=== PATIENT | male | born 1955 | race Caucasian/White ===

== ENCOUNTER 2018-04-27 08:30 | Outpatient (RCR) | payer MEDICARE, MEDICAID, SELFPAY ==
--- NOTE | 2018-01-26 18:51 | HP.SP.ADRE_ITS ---
Previous/Current Goals - Goals 1-5 Previous Goal #1: Jatin will respond negatively regarding his wants and needs by indicating no via augmented sign language during structured therapy activities. Goal 1 Status: Jatin has, very inconsistently, appeared to approximate the augmented no sign at appropriate times during structured therapy. However, he requires direct [id number] the vast majority of the time. He continues to functionally indicate no/dislikes by pushing away non-desired items and producing facial grimaces. Previous Goal #2: Jatin will make functional requests via augnmented sign language during structured therapy activities Goal 2 Status: Jatin continues to use more and yes augmented signs consistently during tx, though he will often use more when he should rather indicate yes. He continues to be consistent indicating that he wants pulled up in his chair by raising his arms, but continues to require direct questioning to initiate. Jatin has not learned any new signs over the last ten sessions, though continued caregiver education has been provided due to frequent staffing changes. We will continue to discuss and implement functional requests over the next sessions. Previous Goal #3: Jatin will categorize objects from significantly different classes from a Fo2 Goal 3 Status: Jatin has demonstrated very little interest/willingness in participating in this goal during structured therapy. It was recommended that this activity be attempted with functional items at Jatin's home, such as silverware or colors of towels, or that functional materials be brought to tx. However, no items have been brought throughout the last ten sessions. We will continue to attempt this goal in the future. History - History Date of Eval: 08/22/16 Medical Diagnosis (from RX): Infantile Cerebral Palsy; Cerebral Palsy Unspecified Previous speech therapy: Yes Results: Jatin has attended speech-langauge therapy at this facility since January of 2015, with brief breaks at the end of the calendar years due to insurance. Previous therapy has attempted low- and high-tech AAC devices with overall very limited success due to significant visual and motoric defecits. - Pain Is pain an issue with your current prescribed condition?: No - Personal Patients Living Arrangements: Institution Subjective AAC - AAC Subjective: Jatin continues to be primarily non-verbal, though he will make vowel-only vocalizations when very happy/excited and groans when upset/in pain. He demonstrates difficulty with fine motor control for pointing and reduced visual acuity. Therefore, augmented sign continues to be the most practical way to attempt increased functional communication. Objective AAC - AAC Objective: Please see obove Goal Status section for objective data regarding use of augmented sign. Jatin does consistently use facial expression/body language to functionally communicate likes and dislikes. He is consistently able to follow simple familiar/routine one-step commands with minimal repetition /prompting, but struggles significantly to follow simple non-routine single- step commands. AAC Re-Eval - Testing Results AAC Test Comparison: Jatin has made very limited improvement across the last ten sessions, though he has, as stated above, appeared to approximate the augmented no sign inconsistently and appropriately several times, which he had not done before. Progress is expected to be slow for the patient's age and diagnosis, with further therapy thereby being warranted at this time to further attempt consistent negation and improved functional communication overall. Plan - Recommendations Treatment Warranted: Yes - Frequency Frequency: 1x/Week Duration: 3 Months - Prognosis Prognosis: Fair - Goals that are Established: Determination:: Goals will be added/modified as deemed necessary and appropriate. Therapy will be discontinued when results of re-evaluation indicate therapy is no longer needed or lack of progress has been documented. - Goal #1-5 Goal #1: Jatin will respond negatively regarding his wants and needs by indicating no via augmented sign language during structured therapy activities. Prompts: Min Accuracy: 60% # Sessions: 3/4 consecutive Goal #2: Jatin will make functional requests via augnmented sign language during structured therapy activities Prompts: Min Accuracy: 75% # Sessions: 3/4 consecutive Goal #3: Jatin will categorize objects from significantly different classes from a Fo2 Prompts: Min Accuracy: 75% # Sessions: 3/4 consecutive
--- NOTE | 2018-04-09 09:37 | HP.PTEVAL ---
Patient's Visit Information JATIN ORTEGA is a 62 year old M referred to Physical Therapy by Wilfredo Marcano with a diagnosis of CP. Date of Evaluation: 04/09/18 Physical Therapist: Marilyn Ramirez - Visit Plan Plan: [facility] for new [facility]. 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 He can understand and knows people its just locked up there and not able to express himself. When he gets upset or excited his body goes into spasm. Has pain with spasms but is unable to let us know and he is just use to his discomfort. Lives in a senior living- with 3 other individuals. Single story home- ramp and fully handicapped accessible- has tracts throughout the ceiling. Any lifting he is in the sling. He likes to be out of his chair as much as possible- very uncomfortable in the current chair. He is either in the chair or in his bed. He eats in the chair and stays 40 min after to make sure digestion is happening. Mother wants him in/out of the chair. His mother is a massage therapist and works on him daily. Is working with circulation through massage. Patellas are moved his LE are contracted. Work: 20 min the AM and 20 min PM on the table- TWI- but he is in the chair from 7 to 3 and only out 2x to change him. 5 days a week- Bathed daily- has a spa tub and a shower- likes to relax in his tub 3 days a week. Dressing is acheived in his bed. He is sliding in the chair and she is always trying to acheive maximum position. Does not change pressure using the tilt in space- they try to get him out of the chair. Always holds his neck forwards. Does not have pressure sores-he is unable to turn on his own. Uses the tray and he is able to feed himself. Transportation is a modified van- has a lift- he does not drive. Patient is a little over 5 foot and weighs approx 107 lbs. Not planning on replacing the whole w/c just the seat. - Objective Jatin is a 62 year male referred to PT by for w/c positioning evaluation. Jatin attends today with 2 caregivers and his mother. Jatin is currently in a tilt in space w/c that is not meeting his current needs. While seated in the sherie Jatin has poor posture- forward head that is in right sidebending. He can move his head through full ROM but prefers this positioning in his current chair. His upper extremities are in a flexed posture- he has decreased range of motion in his shoulders but does have the capability to reach down and access his wheels for simple mobility (approx 15 feet). Elbow contractures- can flex to mouth for feeding but does not obtain full ROM with extension approx 20 degrees from neutral with spasticity and tone. Wrists are in a flexion contracture. Thoracic and Lumbar strength is poor and he is unable to obtain and maintain a sitting position without max A from caregiver/PT. Hips are spaced in chair with adductor padding and legs are secured with LE supports. Jatin is unable to weight shift without max A from caregivers or dependent on lift system. When he slides in the chair caregiver must realign him. Jatin has signficant tone throughout UE and LE leading to contractures and increased pain with stretching. - Goals Goal 1:: Patient will obtain new seating via Malin[employer] for proper positioning. - Rehabilitation Potential Rehabilitation Potential: Good - Anticipated Interventions Thank you for the opportunity to evaluate your patient. For Medicare and Medicare HMO plans, please review the plan of care and approve it. It will need to be FAXED BACK to us at [phone] for Medicare purposes. Please let me know if there are questions or concerns regarding this plan of care. Physician Signature: Date:
--- NOTE | 2018-04-25 13:26 | HP.SP.ADRE ---
Previous/Current Goals - Goals 1-5 Previous Goal #1: Jatin will respond negatively regarding his wants and needs by indicating no via augmented sign language during structured therapy activities. Goal 1 Status: Jatin continues to require direct [id number] for all negation with augmented sign. He is completely functional, however, indicating no/dislikes by pushing away non-desired items and/or producing facial grimaces. Previous Goal #2: Jatin will make functional requests via augnmented sign language during structured therapy activities Goal 2 Status: Jatin continues to use more and yes augmented signs consistently during tx, though he will often use more when he should rather indicate yes. He continues to be consistent indicating that he wants pulled up in his chair by raising his arms, but continues to require direct questioning to initiate. We have introduced the sign for eat, with Jatin requiring 100% [id number] to utilize at this time. Significant caregiver education has been provided regarding importance of consistency with signs at all appropriate times in order for Jatin to become independent. Previous Goal #3: Jatin will categorize objects from significantly different classes from a Fo2 Goal 3 Status: Limited progress has been made with this goal secondary to very little interest/willingness to participate in these types of activities during structured therapy. It continues to be recommended that this activity be attempted with functional items at Jatin's home or that functional materials be brought to therapy to help him feel helpful/purposeful and to encourage prelinguistic skills. However, no items have been brought throughout the last twenty sessions. History - History Date of Eval: 08/22/16 Medical Diagnosis (from RX): Infantile Cerebral Palsy; Cerebral Palsy Unspecified Previous speech therapy: Yes Results: Jatin has attended speech-langauge therapy at this facility since January of 2015, with brief breaks at the end of the calendar years due to insurance. Previous therapy has attempted low- and high-tech AAC devices with overall very limited success due to significant visual and motoric defecits. - Pain Is pain an issue with your current prescribed condition?: No - Personal Patients Living Arrangements: Institution Subjective AAC - AAC Subjective: Jatin continues to be primarily non-verbal, though he will make vowel-only vocalizations when very happy/excited and groans when upset/in pain. He demonstrates difficulty with fine motor control for pointing and reduced visual acuity. Therefore, augmented sign continues to be the most practical way to attempt increased functional communication. Objective AAC - AAC Objective: Please see obove Goal Status section for objective data regarding use of augmented sign. Jatin does consistently use facial expression/body language to functionally communicate likes and dislikes. He is consistently able to follow simple familiar/routine one-step commands with minimal repetition/prompting, but struggles significantly to follow simple non-routine single-step commands. AAC Re-Eval - Testing Results AAC Test Comparison: Jatin has made very limited improvement across the last ten sessions; however, progress is expected to be slow for the patient's age and diagnosis. Further therapy can be warranted at this time, given consistent caregiver support, to further attempt improved functional communication overall. Plan - Recommendations Treatment Warranted: Yes - Frequency Frequency: 1x/Week Duration: 3 Months - Prognosis Prognosis: Poor - Goals that are Established: Determination:: Goals will be added/modified as deemed necessary and appropriate. Therapy will be discontinued when results of re-evaluation indicate therapy is no longer needed or lack of progress has been documented. - Goal #1-5 Goal #1: Jatin will respond negatively regarding his wants and needs by indicating no via augmented sign language during structured therapy activities. Prompts: Min Accuracy: 60% # Sessions: 3/4 consecutive Goal #2: Jatin will make functional requests via augnmented sign language, to include up and eat, during structured therapy activities Prompts: Min Accuracy: 75% # Sessions: 3/4 consecutive Goal #3: Jatin will categorize objects from significantly different classes from a Fo2 Prompts: Min Accuracy: 75% # Sessions: 3/4 consecutive Goal #4: Jatin will follow simple one-step, non-routine commands, including identifying basic nouns Prompts: Mod Accuracy: 60% # Sessions: 3/4 consecutive
--- NOTE | 2018-04-25 13:36 | HP.SP.ADRE_ITS ---
Previous/Current Goals - Goals 1-5 Previous Goal #1: Jatin will respond negatively regarding his wants and needs by indicating no via augmented sign language during structured therapy activities. Goal 1 Status: Jatin continues to require direct [id number] for all negation with augmented sign. He is completely functional, however, indicating no/dislikes by pushing away non-desired items and/or producing facial grimaces. Previous Goal #2: Jatin will make functional requests via augnmented sign language during structured therapy activities Goal 2 Status: Jatin continues to use more and yes augmented signs consistently during tx, though he will often use more when he should rather indicate yes. He continues to be consistent indicating that he wants pulled up in his chair by raising his arms, but continues to require direct questioning to initiate. We have introduced the sign for eat, with Jatin requiring 100% [id number] to utilize at this time. Significant caregiver education has been provided regarding importance of consistency with signs at all appropriate times in order for Jatin to become independent. Previous Goal #3: Jatin will categorize objects from significantly different classes from a Fo2 Goal 3 Status: Limited progress has been made with this goal secondary to very little interest/willingness to participate in these types of activities during structured therapy. It continues to be recommended that this activity be attempted with functional items at Jatin's home or that functional materials be brought to therapy to help him feel helpful/purposeful and to encourage prelinguistic skills. However, no items have been brought throughout the last twenty sessions. History - History Date of Eval: 08/22/16 Medical Diagnosis (from RX): Infantile Cerebral Palsy; Cerebral Palsy Unspecified Previous speech therapy: Yes Results: Jatin has attended speech-langauge therapy at this facility since January of 2015, with brief breaks at the end of the calendar years due to insurance. Previous therapy has attempted low- and high-tech AAC devices with overall very limited success due to significant visual and motoric defecits. - Pain Is pain an issue with your current prescribed condition?: No - Personal Patients Living Arrangements: Institution Subjective AAC - AAC Subjective: Jatin continues to be primarily non-verbal, though he will make vowel-only vocalizations when very happy/excited and groans when upset/in pain. He demonstrates difficulty with fine motor control for pointing and reduced visual acuity. Therefore, augmented sign continues to be the most practical way to attempt increased functional communication. Objective AAC - AAC Objective: Please see obove Goal Status section for objective data regarding use of augmented sign. Jatin does consistently use facial expression/body language to functionally communicate likes and dislikes. He is consistently able to follow simple familiar/routine one-step commands with minimal repetition /prompting, but struggles significantly to follow simple non-routine single- step commands. AAC Re-Eval - Testing Results AAC Test Comparison: Jatin has made very limited improvement across the last ten sessions; however, progress is expected to be slow for the patient's age and diagnosis. Further therapy can be warranted at this time, given consistent caregiver support, to further attempt improved functional communication overall. Plan - Recommendations Treatment Warranted: Yes - Frequency Frequency: 1x/Week Duration: 3 Months - Prognosis Prognosis: Poor - Goals that are Established: Determination:: Goals will be added/modified as deemed necessary and appropriate. Therapy will be discontinued when results of re-evaluation indicate therapy is no longer needed or lack of progress has been documented. - Goal #1-5 Goal #1: Jatin will respond negatively regarding his wants and needs by indicating no via augmented sign language during structured therapy activities. Prompts: Min Accuracy: 60% # Sessions: 3/4 consecutive Goal #2: Jatin will make functional requests via augnmented sign language, to include up and eat, during structured therapy activities Prompts: Min Accuracy: 75% # Sessions: 3/4 consecutive Goal #3: Jatin will categorize objects from significantly different classes from a Fo2 Prompts: Min Accuracy: 75% # Sessions: 3/4 consecutive Goal #4: Jatin will follow simple one-step, non-routine commands, including identifying basic nouns Prompts: Mod Accuracy: 60% # Sessions: 3/4 consecutive
--- NOTE | 2018-04-27 10:23 | HP.PT.NRP ---
HP - Discharge Summary (1) - Patient Information ZAIRA ORTEGA was seen in my office for initial evaluation on 04/09/18. The following Plan of Care was established for this patient: This patient was last seen in our office . Pertinent comments regarding their Physical therapy will appear below: At this point I will be discontinuing this patient from physical therapy. I would be happy to see this patient again in the future if found appropriate by the physician. Thank you! Marilyn Ramirez
== END 2018-04-27 17:00 | disposition home or self-care (01) ==
LOC: SP 08:30
PROVIDERS: Family Provider Family Medicine; PCP Family Medicine; Visit Provider Family Medicine
DX: R49.9 Unspecified voice and resonance disorder (principal); G80.9 Cerebral palsy, unspecified
CPT/HCPCS: 92507; 97162

== ENCOUNTER → 2018-05-18 12:41 | Outpatient (CLI) | payer MEDICARE, MEDICAID, SELFPAY ==
--- NOTE | 2018-05-18 12:44 | RAD_ITS ---
STUDY: SWALLOWING STUDY REASON FOR EXAM: Male, 62 years old. DYSPHAGIA 1,548 FLUORO IMAGES TECHNIQUE: The examination was performed with Speech Pathology in attendance. Under fluoroscopic observation, the patient ingested thin barium, thick barium, barium pudding, and barium coated cracker. FLUOROSCOPY TIME: 1:40 minutes/seconds RADIOLOGIST INVOLVEMENT: Radiologist was present and providing direct supervision. COMPARISON: None. FINDINGS: The following was observed during swallowing of the various mixtures of barium: Thin Barium: There was no evidence of aspiration or laryngeal penetration. Thick Barium: There was no evidence of aspiration or laryngeal penetration. Barium Pudding: There was no evidence of aspiration or laryngeal penetration. RAD/Swallowing Function w/Video IMPRESSION: Normal tailored barium swallow study. No evidence of increased risk for aspiration. The swallow study findings were discussed with the patient by the speech pathologist at the conclusion of the examination. Please see speech pathology report for more information and recommendations. The procedure was performed by speech pathologist under the direct supervision of myself Electronically Signed: Desiree Craig MD at 15:17 EDT Tel , Service support ,
--- NOTE | 2018-05-18 13:00 | SP.MBSS_ITS ---
PRIMARY / SECONDARY DIAGNOSIS: dysphagia (R13.10) REFERRING PHYSICIAN: Dr. Wilfredo Marcano MD CURRENT DIET: regular textures, thin liquids DENTITION: WFL MENTAL STATUS: developmentally delayed RESPIRATORY STATUS: O2 via room air PREVIOUS MODIFIED BARIUM SWALLOW STUDY: none REASON FOR REFERRAL: Patient is a 62 year old male referred for a modified barium swallow (MBS) study to objectively assess the Patients oropharyngeal swallow function under fluoroscopy secondary to the diagnosis of cerebral palsy, with reported recent coughing episodes during PO intake observed by the Patients half-way caregivers. The Patient is well known to this clinician from previous intervention cycles at [facility] / [facility] targeting training and implementation of alternative means of communication (Patient is non-verbal); no intervention targeting dysphagia to date. The Patient was accompanied by his mother and half-way caregiver delivery representative; both deny any recent history of aspiration related pulmonary complications, report intermittent bouts of emesis (Patients mother attributing to excessive mucous buildup secondary to gluten intolerance), reports tachyphagia with bolus ?bolting? (rapid ingestion without sufficient mastication) with staff concerns for asphyxiation. No reported fluctuations or changes in weight or appetite. The Patient is wheelchair bound, completely dependent for all transfers, unable to independently achieve or maintain an upright seated position, is completely dependent for all activities of daily living. MEDICAL HISTORY: Infantile cerebral palsy with severe spasticity and associated developmental disabilities / nonverbal status, gluten intolerance, scoliosis deformity of the spine, bilateral hip displacement. STUDY FINDINGS: Patient participated in a Modified Barium Swallow (MBS) study on 05/18/2018. Dr. Craig was the radiologist present for this evaluation. This study was recorded in the lateral view and images were sent to PACs for storage. The following consistencies were presented to this patient for analysis of oropharyngeal swallow function: thin liquids, pudding, and a regular textured, gluten free cookie. Results of the MBS are as follows: PENETRATION / ASPIRATION SCALE (TIERNEY): 1 = does not enter airway 2 = enters airway/above vocal folds/ejected 3 = enters airway/above vocal folds/not ejected 4 = enters airway/contacts vocal folds/ejected 5 = enters airway/contacts vocal folds/not ejected 6 = enters airway/below vocal folds/ejected 7 = enters airway/below vocal folds/not ejected despite effort 8 = enters airway/below vocal folds/no effort PENETRATION / ASPIRATION SCALE (SCORE): Thin liquids via cup (single sip): refused Thin liquids via straw (sequential swallows): 1 Thin liquids via straw (sequential swallows): 2 Thin liquids via straw (sequential swallows): 1 Thin liquids via straw (sequential swallows): 1 Pudding via spoon: 1 Thin liquids via straw (sequential swallows): 1 Regular textured cookie: 1 Thin liquids via straw (sequential swallows): 1 Thin liquids via straw (sequential swallows): 1 * multiple views complicated by body positioning limitations and occasional movement IMPRESSION: DIAGNOSIS: mild to moderate oropharyngeal dysphagia (R13.12) ORAL PHASE CHARACTERIZED BY: LABIAL SEAL: occasional escape beyond mid chin TONGUE CONTROL DURING BOLUS MANIPULATION: escape to lateral buccal cavity/floor of mouth BOLUS PREPARATION / MASTICATION: slow disorganized chewing/mashing with solid pieces of bolus unchewed BOLUS TRANSPORT / LINGUAL MOTION: slowed tongue motion ORAL RESIDUE: intermittent residue collection on oral structures; majority cleared with self-executed repetitive swallows PHARYNGEAL PHASE CHARACTERIZED BY: INITIATION OF PHARYNGEAL SWALLOW: bolus head in pyriforms at first hyoid excursion SOFT PALATE ELEVATION: no bolus between soft palate and pharyngeal wall LARYNGEAL ELEVATION: complete superior movement of thyroid cartilage with complete approximation of arytenoids cartilage to epiglottic petiole ANTERIOR HYOID EXCURSION: partial anterior movement EPIGLOTTIC MOVEMENT: complete epiglottic inversion LARYNGEAL VESTIBULE CLOSURE AT HEIGHT OF SWALLOW: complete laryngeal vestibule closure with no air/contrast in laryngeal vestibule PHARYNGEAL STRIPPING WAVE: pharyngeal stripping wave present / diminished PHARYNGOESOPHAGEAL SEGMENT OPENING: partial distension and partial duration; partial obstruction of flow TONGUE BASE RETRACTION: narrow column of contrast between tongue base and posterior pharyngeal wall PHARYNGEAL RESIDUE: collection of residue within or on pharyngeal structures ESOPHAGEAL PHASE CHARACTERIZED BY: ESOPHAGEAL BOLUS CLEARANCE IN THE UPRIGHT POSITION: mild pharyngoesophageal retention with scant retrograde flow through PES; lacking clinical significance under fluoroscopy EFFECTS OF TREATMENT STRATEGIES ATTEMPTED: Liquid chaser = effective Reduced bolus size = moderately effective DIET TEXTURE RECOMMENDATIONS: Will recommend a regular-soft textured, thin liquid diet. COMPENSATORY STRATEGIES RECOMMENDED: Supervision with assistance as needed, reduced bolus volume with suggestion to cut solid textures into bite sized pieces, reduced rate of intake, alternate bites and sips at reasonable intervals (every 1-2 bites), straws encouraged with liquids, seated upright at 90 degrees during PO intake, remain upright for 30-60 minutes post meal (GERD precaution). INTERPRETATION OF RESULTS: The Patient presents with mild to moderate oropharyngeal dysphagia (R13.12) secondary to the diagnosis of cerebral palsy and likely secondary presbyphagia effects. Oral preparatory phase marked by mastication inefficiency (mild to moderate) with prolonged and at times discoordinated mastication, albeit effective when given ample time and reasonable limitations in regards to bolus volume. Oral transport phase marked by intermittent anterior bolus loss past the chin during thin liquid trials; overall reduced oral transport speed with transportation often lacking full bolus collection prior to deglutition, with noted piecemeal deglutition (likely exacerbated with bolus ?bolting?/ tachyphagia); and intermittent insufficient oral clearance mild to moderate residue noted post deglutition that cleared with liquid wash. Pharyngeal phase marked by (moderate) impaired pharyngeal motility / pharyngeal dysmotility reduced tongue based retraction and posterior pharyngeal stripping wave action; impaired pharyngeal swallow onset timing with intermittent 1-2 second onset delay; and reduced anterior hyoid excursion (mild) resulting in both reduced closure of the airway during deglutition and mild reduction in pharyngoesophageal segment opening, with sufficient laryngeal vestibule pressure generated to expel penetrated material (transient penetration on one occasion; finding not markedly outside normal limits in isolation). The Patient initially refused to participate with trials of thin liquids from cup (though this may have been due to confusion with request), and tolerated thin liquid intake via straw without issue: this may improve intake sufficiency, as it would discourage lifting of the head during intake from a cup with 25% or less of the liquids remaining. An apparent mild cricopharyngeal bar was visualized at the C-5 level; difficult to fully discern due to intermittent movement during deglutition and positioning complications; regardless no effect on pharyngoesophageal motility appreciated. While the Patient did not demonstrate aspiration under fluoroscopy, I would consider this Patient to be at higher risks of prandial and post prandial aspiration with rapid ingestion, or ingestion in suboptimal positions; all concerns would be heightened if combined with any acute medical event, which may exacerbate the above mentioned deficits that to date, appear to be manageable. RECOMMENDATIONS: Would consider the Patient at higher risk for aspiration related pulmonary complications given the Patients baseline wheelchair dependence and immobility; recommend careful monitoring for temperature spikes, or abnormal fatigue if any overt signs and symptoms of aspiration are noted during PO intake ingestion. Would further consider this Patient at higher risk for aspiration pneumonitis given the intermittent albeit somewhat frequent bouts of emesis that was described by the Patients caregivers; would strongly suggest monitoring for temperature spikes and signs of abnormal fatigue post emesis event. Would consider all findings to hold heightened clinical significance if paired with an acute medical event complicating alertness / lethargy and physical functioning / responsiveness; this will likely impact the swallowing mechanisms sufficiency / effectiveness and heighten the Patients risk factors for aspiration and aspiration related pulmonary complications in addition to the initial medical event. The Patient may benefit from continued skilled speech-language intervention targeting continued diet texture management and caregiver training regarding recommended compensatory strategies, though would continue with primary therapeutic goals as priority targeted outcomes. ADDITIONAL COMMENTS/RECOMMENDATIONS: Results and recommendations were discussed with the Patient and Patient?s caregivers immediately following MBS completion, with the Patient?s caregivers verbalizing understanding and agreement with all recommendations and education provided. Extensive education provided post assessment completion (> 30 minutes), in addition to excessive time required to transfer the Patient to and from the fluoroscopy chair (>30 minutes total). IMAGE COUNT: [id number] G-CODES: SWALLOWING [id number] Current Status: CI SWALLOWING [id number] Goal Status: CI SWALLOWING [id number] Discharge Status: CI Demarco Keating M.A., CCC-AUTO BENCH MECHANIC [facility] Speech-Language Pathology Department [email or web address]
== END ==
PROVIDERS: Family Provider Family Medicine; PCP Family Medicine; Referring Provider Family Medicine; Visit Provider Family Medicine
DX: R13.10 Dysphagia, unspecified (principal)
CPT/HCPCS: 74230; 92611; G8996; G8997; G8998

== ENCOUNTER 2018-11-23 08:30 | Outpatient (RCR) | payer MEDICARE, MEDICAID, SELFPAY ==
--- NOTE | 2018-09-03 10:38 | HP.SP.ADRE_ITS ---
Previous/Current Goals - Goals 1-5 Previous Goal #1: Jatin will respond negatively regarding his wants and needs by indicating no via augmented sign language during structured therapy activities. Goal 1 Status: Jatin continues to require 100% [id number] ([place]) assistance to indicate no via augmented sign language during structured therapy activities. He is functional indicating no/dislikes to personal questions by pushing away items or making facial grimaces. However, he struggles to make choices between two items. Previous Goal #2: Jatin will make functional requests via augmented sign language, to include up and eat, during structured therapy activities Goal 2 Status: Caregivers report Jatin is demonstrating increased consistency for up sign independently when asked. He uses this sign approximately 75% of the time during therapy. He continues to require 100% [place] for eat, with the pt at times seeming to attempt verbalization as well. Consistency at the pt's home environment is strongly encouraged. Previous Goal #3: Jatin will categorize objects from significantly different classes from a Fo2 Goal 3 Status: Jatin is able to put items into piles once modeled, but struggles to independently sort two different items into appropriate piles (<50% accuracy independently). Continue to recommend attempting this activity with functional items in Jatin's home to encourage prelinguistic skills. Previous Goal #4: Jatin will follow simple one-step, non-routine commands, including identifying basic nouns Goal 4 Status: At this time, Jatin follows non-routine commands (ex: touch your hair, touch your belly) with <10% accuracy independently. History - History Date of Eval: 08/22/16 Medical Diagnosis (from RX): Infantile Cerebral Palsy; Cerebral Palsy Unspecified Previous speech therapy: Yes Results: Jatin has attended speech-language therapy at this facility since January,, with breaks due to insurance and scheduling sometimes necessary. Previous therapy has attemped low- and high-tech AAC devices with overall very limited success due to significant visual and motoric deficits. - Pain Is pain an issue with your current prescribed condition?: No - Personal Patients Living Arrangements: Institution Subjective AAC - AAC Subjective: Jatin continues to be primarily non-verbal, though he will make vowel-only verbalizations when very happy/excited and groans when upset/in pain. He does seem to be increasing his attempts at some simple words: yea, no, and eat. He demonstrates difficulty with fine motor control for pointing and reduced visual acuity; therefore, augmented sign language continues to be the most practical way to attempt increased functional communication. Objective AAC - AAC Objective: Please see the above Goal Status section for objective data regarding use of augmented sign language/functional communication. Jatin does consistently use facial expression/body language independently to functionally communicated likes and dislikes. He remains consistently able to follow simple, familiar one-step commands in routines with minimal prompting, but continues to significantly struggle to follow any simple, single-step non-routine commands. AAC Re-Eval - Testing Results AAC Test Comparison: Jatin continues to demonstrate very limited improvement across the last ten sessions, though progress is expected to be slow for the patient's age and diagnosis. However, further therapy can be warranted at this time secondary to consistent attendance and caregiver carryover/support of recommendations, as well as past progress, to further attempted improved functional communication overall. Plan - Recommendations Treatment Warranted: Yes - Frequency Frequency: 1x/Week Duration: 4-6 Months - Prognosis Prognosis: Poor - Goals that are Established: Determination:: Goals will be added/modified as deemed necessary and appropriate. Therapy will be discontinued when results of re-evaluation indicate therapy is no longer needed or lack of progress has been documented. - Goal #1-5 Goal #1: Jatin will respond negatively regarding his wants and needs by indicating no via augmented sign language during structured therapy activities. Prompts: Min Accuracy: 60% # Sessions: 3/4 consecutive Goal #2: Jatin will make functional requests via augmented sign language, to include up and eat, during structured therapy activities Prompts: Min Accuracy: 75% # Sessions: 3/4 consecutive Goal #3: Jatin will categorize objects from significantly different classes from a Fo2 Prompts: Min Accuracy: 75% # Sessions: 3/4 consecutive Goal #4: Jatin will follow simple one-step, non-routine commands, including identifying basic nouns Prompts: Mod Accuracy: 60% # Sessions: 3/4 consecutive
== END 2018-11-23 17:00 | disposition home or self-care (01) ==
LOC: SP 08:30
PROVIDERS: Family Provider Family Medicine; PCP Family Medicine; Visit Provider Family Medicine
DX: R49.9 Unspecified voice and resonance disorder (principal); G80.9 Cerebral palsy, unspecified
CPT/HCPCS: 92507

== ENCOUNTER 2019-05-10 08:30 | Outpatient (RCR) | payer MEDICARE, MEDICAID, SELFPAY ==
--- NOTE | 2018-12-12 10:52 | HP.SP.ADRE_ITS ---
Previous/Current Goals - Goals 1-5 Previous Goal #1: Jatin will respond negatively regarding his wants and needs by indicating no via augmented sign language during structured therapy activities. Goal 1 Status: No progress. Pt continues with 0% accuracy indicating no via augmented sign language, requiring [id number] and visual modeling with each trial. He does continue to indicate no by making facial grimaces, pushing unwanted items away, or ignoring the question at times, though struggles to make choices between two items. Previous Goal #2: Jatin will make functional requests via augmented sign language, to include up and eat, during structured therapy activities Goal 2 Status: Limited progress. Caregivers report that Jatin is using the up sign when asked nearly 100% of the time in his home environment. He is not using the eat sign independently (0% accuracy), requiring 100% [id number] and visual models. Previous Goal #3: Jatin will categorize objects from significantly different classes from a Fo2 Goal 3 Status: No progress (<50% accuracy). Jatin demonstrates limited interest in categorization activities, which makes targeting this goal difficu lt. Suggestions have been provided for functional, purposeful activities to be completed in the home environment (sorting laundry, silverware, etc...) with limited carryover to this point. Previous Goal #4: Jatin will follow simple one-step, non-routine commands, including identifying basic nouns Goal 4 Status: No progress (<10% accuracy). Jatin will follow many one-step routine commands, but continues to demonstrate significant difficulty following basic novel commands. History - History Date of Eval: 08/22/16 Medical Diagnosis (from RX): Infantile Cerebral Palsy; Cerebral Palsy Unspecified Previous speech therapy: Yes Results: Jatin has attended therapy at this facility since January,, with breaks due to insurance and scheduling sometimes necessary. Previous therapy has attempted low- and high-tech AAC devices with overall very limited success due to significant visual and motoric deficits. - Pain Is pain an issue with your current prescribed condition?: No - Personal Patients Living Arrangements: Institution Subjective AAC - AAC Subjective: Jatin continues to be non-verbal, though he does make vowel-only vocalizations when very upset or excited, in addition to groaning when in pain. He demonstrates significantly reduced visual acuity and difficulty with fine motor control for pointing, making augmented sign language the most practical way to attempt increased functional communication. Objective AAC - AAC Objective: Please see the previous Goal Status section for objective data regarding Jatin's use of augmented sign language/functional communication. He continues to use the yes and more signs functionally and independently, as well as facial expression and body language to effectively convey likes and dislikes. Jatin, however, has a difficult time expressing his choice between two presented items. He, again, follows only routine commands at this time. AAC Re-Eval - Testing Results AAC Test Comparison: Jatin continues to demonstrate very limited progress across the last ten sessions, though progress is expected to be slow for the patient's age and diagnosis. He consistently attends his scheduled sessions and has excellent family support, though carryover of recommendations at the [facility] where he resides is often inconsistent due to the number of caregivers and difficulty with communication. Therapy may continue to be warranted/medically necessary at this time due to the patient's overall minimal functional communication and its associated concerns for his safety. Plan - Recommendations Treatment Warranted: Yes - Frequency Frequency: 1x/Week Duration: 4-6 Months - Prognosis Prognosis: Poor - Goals that are Established: Determination:: Goals will be added/modified as deemed necessary and appropriate. Therapy will be discontinued when results of re-evaluation indicate therapy is no longer needed or lack of progress has been documented. - Goal #1-5 Goal #1: Jatin will make a consistent choice between two presented food items by effectively conveying yes and/or no Prompts: Mod Accuracy: 60% # Sessions: 3/4 consecutive Goal #2: Jatin will spontaneously make functional requests via augmented sign language, to include up and eat Prompts: Min Accuracy: 50% # Sessions: 3/4 consecutive Goal #3: Jatin will categorize object from significantly different classes from a Fo2 Prompts: Min Accuracy: 75% # Sessions: 3/4 consecutive Goal #4: Jatin will follow simple one-step, non-routine commands, including identifying basic nouns Prompts: Mod Accuracy: 60% # Sessions: 3/4 consecutive
--- NOTE | 2019-05-03 08:29 | HP.SP.ADRE ---
Previous/Current Goals - Goals 1-5 Previous Goal #1: Jatin will make a consistent choice between two presented food items by effectively conveying yes and/or no Goal 1 Status: Progressing. When presented two food items, Jatin is consistently making a choice in >75% of trials by handing an item to the INJECTION MOLDING TECHNICIAN. However, he is not always consistent with handing a desired choice; he often chooses the item on his left even when items are switched. He does not use the augmented no sign indep (<10%), continuing to require 100% [id number] supports. Previous Goal #2: Jatin will spontaneously make functional requests via augmented sign language, to include up and eat Goal 2 Status: Limited progress. Jatin continues to use previously learned more, yes, & bye augmented signs consistently indep or with minimal prompting. He uses the up sign given verbal prompts only, and is not yet using no or eat independently, continuing to require consistent ktot-npfo-nfuc supports (<10% indep). Previous Goal #3: Jatin will categorize objects from significantly different classes from a Fo2 Goal 3 Status: No progress. (<50%) This goal has been directly targeted less frequently than the others; however, Jatin demonstrates limited interest in these tasks and minimal caregiver carryover has been observed (no functional objects from home - silverware, towels - have been brought to tx on request). Previous Goal #4: Jatin will follow simple one-step, non-routine commands, including identifying basic nouns Goal 4 Status: No progress. Jatin continues to follow routine commands consistently, and attempts to use objects for their known purposes. However, he is not yet following non-routine commands consistently (<10%). History - History Date of Eval: 08/22/16 Medical Diagnosis (from RX): Infantile Cerebral Palsy; Cerebral Palsy Unspecified Previous speech therapy: Yes Results: Jatin has attended therapy at this facility since January,, with breaks due to insurance, scheduling, and patient physical and mental health sometimes necessary. Previous therapy has attempted low- and high-tech AAC devices with overall very limited success due to significant visual and motoric deficits. - Pain Is pain an issue with your current prescribed condition?: No - Personal Patients Living Arrangements: Institution Subjective AAC - AAC Subjective: Jatin continues to be primarily non-verbal, though he does make mostly vowel-only vocalizations when very upset or excited, in addition to groaning when in pain. He demonstrates significantly reduced visual acuity and difficulty with fine motor control for pointing, making augmented sign language the most practical way to attempt increased functional communication. Objective AAC - AAC Objective: Please see the previous Goal Status section for objective data regarding Jatin's use of augmented sign language/functional communication. He continues to use the yes and more signs functionally and independently, augmented by facial expression and body language to effectively convey likes and dislikes. He is improving his ability to express his choice between two presented items, but, again, follows only routine commands at this time and demonstrates very little interest in most pre-linguistic tasks. AAC Re-Eval - Testing Results AAC Test Comparison: Jatin has overall demonstrated limited progress across the last ten sessions, though he has increased his ability to hand (desired?) items to this INJECTION MOLDING TECHNICIAN when presented with two food choices. Progress is expected to be slow for the patient's age and diagnosis. Attendance has been for the most part consistent. Jatin has excellent family support, though carryover of recommendations at the senior living where he resides is inconsistent due to the number of caregivers/frequently changing staff and difficulty with communication. Therapy may continue to be warranted/medically necessary at this time due to the patient's overall minimal functional communication and its associated concerns for his safety, though considerations for decreased direct service frequency and increased carryover of recommendations in the patient's home environment are warranted. Plan - Recommendations Treatment Warranted: Yes - Frequency Frequency: 2-3x/month - Prognosis Prognosis: Poor - Goals that are Established: Determination:: Goals will be added/modified as deemed necessary and appropriate. Therapy will be discontinued when results of re-evaluation indicate therapy is no longer needed or lack of progress has been documented. - Goal #1-5 Goal #1: Jatin will make a consistent choice between two presented food items by effectively conveying yes and/or no with 75% accuracy in 3/4 consecutive sessions. Goal #2: Jatin will spontaneously make functional requests via augmented sign language, to include up and eat, with 50% accuracy in 3/4 consecutive sessions. Goal #3: Jatin will categorize objects from significantly different classes from a Fo2 with 60% accuracy in 3/4 consecutive sessions. Goal #4: Jatin will follow simple one-step, non-routine commands, including identifying basic nouns with 60% accuracy in 3/4 consecutive sessions.
== END 2019-05-10 17:00 | disposition home or self-care (01) ==
LOC: SP 08:30
PROVIDERS: Family Provider Family Medicine; PCP Family Medicine; Referring Provider Family Medicine; Visit Provider Family Medicine
DX: G80.8 Other cerebral palsy (principal); R49.9 Unspecified voice and resonance disorder
CPT/HCPCS: 92507

== ENCOUNTER 2020-02-24 13:00 | Outpatient (RCR) | payer MEDICARE, MEDICAID, SELFPAY ==
--- NOTE | 2020-01-29 18:03 | HP.SP.ADRE ---
Previous/Current Goals - Goals 1-5 Previous Goal #1: Jatin will make a consistent choice between two presented food items by effectively conveying yes and/or no with 75% accuracy in 3/4 consecutive sessions. Goal 1 Status: Progressing. When presented two food items, Jatin is consistently making a choice in >75% of trials by handing an item to the STAFF SUBMARINE WARFARE OFFICER. On his last trial, he chose a desired item 100% of the time regardless of what side it was placed on. He does not use the augmented no sign indep, continuing to require 100% fzjx-curf-myhl supports. Previous Goal #2: Jatin will spontaneously make functional requests via augmented sign language, to include up and eat, with 50% accuracy in 3/4 consecutive sessions. Goal 2 Status: Limited progress. Jatin continues to use previously learned more, yes, & bye augmented signs consistently indep or with minimal verbal prompting. He uses the up sign given verbal prompts only, and is not yet using no or eat independently, continuing to require consistent jpgq-ahib-jfxd supports (<10% indep). Frequently changing caregivers/agencies has made education and consistency across environments difficult. Previous Goal #3: Jatin will categorize objects from significantly different classes from a Fo2 with 60% accuracy in 3/4 consecutive sessions. Goal 3 Status: No progress. (<50%) This goal has again been directly targeted less frequently than the others due to very limited interest (turning away) in these tasks by Jatin. Previous Goal #4: Jatin will follow simple one-step, non-routine commands, including identifying basic nouns with 60% accuracy in 3/4 consecutive sessions. Goal 4 Status: No progress. Jatin continues to follow routine verbal commands consistently (eg: taking off bib) and attempts to use objects for their known purposes. However, he is not yet following non-routine commands with any degree of consistency (<10%). History - History Date of Eval: 08/22/16 Medical Diagnosis (from RX): Infantile Cerebral Palsy; Cerebral Palsy Unspecified Previous speech therapy: Yes Results: Jatin has attended therapy at this facility since January,, with breaks due to insurance, scheduling, and patient physical and mental health sometimes necessary. Previous therapy has attempted low- and high-tech AAC devices with overall very limited success due to significant visual and motoric deficits. - Pain Is pain an issue with your current prescribed condition?: No - Personal Patients Living Arrangements: Institution Subjective AAC - AAC Subjective: Jatin continues to be primarily non-verbal, though he does consistently make mostly vowel-only vocalizations when very upset or excited, in addition to groaning when in pain. He demonstrates significantly reduced visual acuity and difficulty with fine motor control for pointing, making augmented sign language the most practical way to attempt increased functional communication. Objective AAC - AAC Objective: Please see the previous Goal Status section for objective data regarding Jatin's use of augmented sign language/functional communication. He continues to use the yes and more signs generally functionally and independently, augmented by facial expression and body language to generally effectively convey likes and dislikes. He is improving his ability to express his choice between two presented items, but, again, follows only routine commands at this time and demonstrates very little interest in most pre-linguistic tasks. AAC Re-Eval - Testing Results AAC Test Comparison: Jatin has overall demonstrated limited progress across the last ten sessions, though he continues to increase his ability to hand desired items to this STAFF SUBMARINE WARFARE OFFICER when presented with two food choices. Progress is expected to be slow for the patient's age and diagnosis. Attendance has been spotty due to, in part, the COVID-19 pandemic and Jatin's physical and emotional well-being with changes in the agency at his residence. Jatin has excellent family support, though carryover of recommendations at the long term where he resides is inconsistent due to the number of caregivers/frequently changing staff and difficulty with communication. Therapy may continue to be warranted/medically necessary at this time due to the patient's overall minimal functional communication and its associated concerns for his safety, though considerations for decreased direct service frequency and increased carryover of recommendations in the patient's home environment continue to be warranted. Plan - Recommendations Treatment Warranted: Yes - Frequency Frequency: 2-3x/month - Prognosis Prognosis: Poor - Goals that are Established: Determination:: Goals will be added/modified as deemed necessary and appropriate. Therapy will be discontinued when results of re-evaluation indicate therapy is no longer needed or lack of progress has been documented. - Goal #1-5 Goal #1: Jatin will make a consistent choice between two presented food items by effectively conveying yes and/or no with 75% accuracy in 3/4 consecutive sessions. Goal #2: Jatin will spontaneously make functional requests via augmented sign language, to include up and eat, with 50% accuracy in 3/4 consecutive sessions. Goal #3: Jatin will categorize objects from significantly different classes from a Fo2 with 60% accuracy in 3/4 consecutive sessions. Goal #4: Jatin will follow simple one-step, non-routine commands, including identifying basic nouns with 60% accuracy in 3/4 consecutive sessions.
== END 2020-02-24 19:00 | disposition home or self-care (01) ==
LOC: SP 13:00
PROVIDERS: Family Provider Family Medicine; PCP Family Medicine; Visit Provider Family Medicine
DX: G80.8 Other cerebral palsy (principal); R49.9 Unspecified voice and resonance disorder; F80.2 Mixed receptive-expressive language disorder
CPT/HCPCS: 92507

== ENCOUNTER 2020-09-10 09:00 | Outpatient (RCR) | payer MEDICARE, MEDICAID, SELFPAY ==
--- NOTE | 2020-07-14 14:58 | HP.SP.ADRE ---
Previous/Current Goals - Goals 1-5 Previous Goal #1: Jatin will make a consistent choice between two presented food items by effectively conveying yes and/or no with 75% accuracy in 3/4 consecutive sessions. Goal 1 Status: Progressing. When presented two food items, Jatin is consistently making a choice in >75% of trials by handing an item to the ASSEMBLY LINE ROBOT OPERATOR. He does not use the augmented no sign indep, continuing to require 100% uafa-ktdy-lkyr supports. Pt's mother stated that he often will purse lips and/or turn head away to indicate no. Previous Goal #2: Jatin will spontaneously make functional requests via augmented sign language, to include up and eat, with 50% accuracy in 3/4 consecutive sessions. Goal 2 Status: Progressing. Jatin continues to use previously learned more, yes, bye augmented signs consistently indep or with minimal verbal prompting. He has begun use of the up sign spontaneously at times, and will use more frequently when given verbal prompts. Pt is not yet using no or eat independently, continuing to require consistent vrub-vjgn-rhnh supports (<10% indep). Frequently changing caregivers/agencies has made education and consistency across environments difficult. Provided written solano of Jatin's signs and their meanings for his chair to promote carryover at home. Previous Goal #3: Jatin will categorize objects from significantly different classes from a Fo2 with 60% accuracy in 3/4 consecutive sessions. Goal 3 Status: No progress. (<50%) This goal has again been directly targeted less frequently than the others due to very limited interest (turning away) in these tasks by Jatin. Previous Goal #4: Jatin will follow simple one-step, non-routine commands, including identifying basic nouns, with 60% accuracy in 3/4 consecutive sessions. Goal 4 Status: Jatin continues to follow routine verbal commands consistently (eg: take a drink, taking off bib) and attempts to use objects for their known purposes. However, he is not yet following non-routine commands with any degree of consistency (<10%). History - History Date of Eval: 08/22/16 Date of Onset of Diagnosis: Infantile Cerebral Palsy, Cerebral Palsy unspecified Previous speech therapy: Yes Results: Jatin has attended therapy at this facility since January,, with breaks due to insurance, scheduling, and patient physical and mental health sometimes necessary. Previous therapy has attempted low- and high-tech AAC devices with overall very limited success due to significant visual and motoric deficits. - Pain Is pain an issue with your current prescribed condition?: No Subjective AAC - AAC Subjective: Jatin continues to be primarily non-verbal, though he does consistently make mostly vowel-only vocalizations when very upset or excited, in addition to groaning when in pain. He demonstrates significantly reduced visual acuity and difficulty with fine motor control for pointing, making augmented sign language the most practical way to attempt increased functional communication. Objective AAC - AAC Objective: Please see the above Goal Status section for objective data regarding Jatin's use of augmented sign language/functional communication. He continues to use the yes, up, and more signs generally functionally and independently, augmented by facial expression and body language to convey likes and dislikes. He is improving his ability to express his choice between two presented items, but still requires min-moderate verbal cueing to consistently indicate choices by handing items to therapist. AAC Re-Eval - Testing Results AAC Test Comparison: Jatin has overall demonstrated limited progress across the last ten sessions, though he continues to increase his ability to hand desired items to this ASSEMBLY LINE ROBOT OPERATOR when presented with two food choices. Progress is expected to be slow for the patient's age and diagnosis. Attendance has been spotty due to, in part, the COVID-19 pandemic and Jatin's physical and emotional well-being with changes in the agency at his residence. Jatin has excellent family support. Therapist has been providing staff education to staff members present at therapy sessions to encourage carryover recommendations, though [facility]over of recommendations at the [facility] is inconsistent due to the number of caregivers/frequently changing staff and difficulty with communication. ASSEMBLY LINE ROBOT OPERATOR is providing a written solano of Jatin's signs and their meanings to be put on his wheelchair for staff to refer to. Therapy may continue to be warranted/medically necessary at this time due to the patient's overall minimal functional communication and its associated concerns for his safety, though considerations for decreased direct service frequency and increased carryover of recommendations in the patient's home environment continue to be warranted. Plan - Recommendations Treatment Warranted: Yes - Frequency Frequency: 2-3X/month - Prognosis Prognosis: Poor - Goals that are Established: Determination:: Goals will be added/modified as deemed necessary and appropriate. Therapy will be discontinued when results of re-evaluation indicate therapy is no longer needed or lack of progress has been documented. - Goal #1-5 Goal #1: Jatin will make a consistent choice between two presented food items by effectively conveying yes and/or no with 75% accuracy in 3/4 consecutive sessions. Goal #2: Jatin will spontaneously make functional requests via augmented sign language, to include up, more, and eat, with 50% accuracy in 3/4 consecutive sessions. Goal #3: Jatin will categorize objects from significantly different classes from a Fo2 with 60% accuracy in 3/4 consecutive sessions. Goal #4: Jatin will follow simple one-step, non-routine commands, including identifying basic nouns, with 60% accuracy in 3/4 consecutive sessions.
--- NOTE | 2020-09-03 17:24 | HP.SP.ADRE_ITS ---
Previous/Current Goals - Goals 1-5 Previous Goal #1: Jatin will make a consistent choice between two presented food items by effectively conveying yes and/or no with 75% accuracy in 3/4 consecutive sessions. Goal 1 Status: Progressing. When presented three food items, Jatin is consistently making a choice in >80% of trials by handing an item to the INJECTION MOLDING MACHINE TENDER. He does not use the augmented no sign indep, continuing to require 100% jscd-efoe-[id number] supports. Pt's mother stated that he often will purse lips and/or turn head away to indicate no. During one session, he would push away undesired items. Previous Goal #2: Jatin will spontaneously make functional requests via augmented sign language, to include up, more, and eat, with 50% accuracy in 3/4 consecutive sessions. Goal 2 Status: Progressing. Jatin continues to use previously learned more, yes, up, bye augmented signs consistently indep or with minimal verbal prompting. He requires moderate verbal cues to reliably indicate yes to meet needs. Pt is not yet using no or eat independently, continuing to require consistent dnbq-poyy-xwpa supports (<10% indep). Pt did begin gesturing no by pushing items away and utilzing vocalization to approximate no during 1 session. Frequently changing caregivers/agencies has made education and consistency across environments difficult. Written solano remains on Jatin's chair of his signs and their meanings to promote carryover at home. Previous Goal #3: Jatin will categorize objects from significantly different classes from a Fo2 with 60% accuracy in 3/4 consecutive sessions. Goal 3 Status: No progress. (<50%) INJECTION MOLDING MACHINE TENDER targeting this goals past two sessions as pt has had increased interest in sorting task with verbal encouragement and reward of snack when completing sorting. Previous Goal #4: Jatin will follow simple one-step, non-routine commands, including identifying basic nouns, with 60% accuracy in 3/4 consecutive sessions. Goal 4 Status: Jatin continues to follow routine verbal commands consistently (eg: take a drink, taking off bib) and attempts to use objects for their known purposes. He has increased ability to follow directions putting items away with initial [place] cues and moderate verbal cueing. History - History Date of Eval: 08/22/16 Medical Diagnosis (from RX): Infantile Cerebral Palsy, unspecified Date of Onset of Diagnosis: Infantile Cerebral Palsy, Cerebral Palsy unspecified Previous speech therapy: Yes Results: Jatin has attended therapy at this facility since January,, with breaks due to insurance, scheduling, and patient physical and mental health sometimes necessary. Previous therapy has attempted low- and high-tech AAC devices with overall very limited success due to significant visual and motoric deficits. He has been able to acquire signs to communicate more, yes, up. - Pain Is pain an issue with your current prescribed condition?: No - Personal Patients Living Arrangements: Jatin lives in a home with nursing care. Subjective AAC - AAC Subjective: Jatin continues to be primarily non-verbal, though he does consistently make mostly vowel-only vocalizations when very upset or excited, in addition to groaning when in pain. He demonstrates significantly reduced visual acuity and difficulty with fine motor control for pointing, making augmented sign language the most practical way to attempt increased functional communication. During one session, Jatin voiced approximation for no 2X paired with a gesture pushing undesired item (water) away. Objective AAC - AAC Objective: Please see the above Goal Status section for objective data regarding Jatin's use of augmented sign language/functional communication. He continues to use the yes, up, and more signs generally functionally and independently, augmented by facial expression and body language to convey likes and dislikes. He is improving his ability to express his choice between two presented items, but still requires min-moderate verbal cueing to consistently indicate choices by handing items to therapist. AAC Re-Eval - Testing Results AAC Test Comparison: Overall, pt demonstrated limited progress across the last ten sessions, though he continues to increase his ability to hand desired items to this INJECTION MOLDING MACHINE TENDER when presented with three food choices. Additionally, he presented with verbal approximation of no during 1 session. Progress is expected to be slow for the patient's age and diagnosis. Attendance has been spotty due to, in part, the COVID-19 pandemic and Jatin's physical well-being with suspected tooth pain in the past two weeks. Jatin has excellent family support. Therapist has been providing staff education to staff members present at therapy sessions to encourage carryover recommendations, though carryover of recommendations at the long-term where he resides is inconsistent due to the number of caregivers/frequently changing staff and difficulty with communication. INJECTION MOLDING MACHINE TENDER has provided a written solano of Jatin's signs and their meanings to be put on his wheelchair for staff to refer to. Therapy may continue to be warranted/medically necessary at this time due to the patient's overall minimal functional communication and its associated concerns for his safety, though considerations for decreased direct service frequency and increased carryover of recommendations in the patient's home environment continue to be warranted. Plan - Plan Plan: In addition to continuing to address above mentioned goals, Jatin would benefit from an updated MBS study due to INJECTION MOLDING MACHINE TENDER concerns for pt's aspiration risk consuming snack during session. Intermittently, pt has presented with coughing or increased expiratory wheezing following meals. Jatin has not had a MBS study since May 2018. Order has been obtained by pt's physician. Pt awaiting call from [facility] to schedule MBS. - Recommendations MBS: Yes Treatment Warranted: Yes - Frequency Frequency: 2-3X/month - Prognosis Prognosis: Poor - Goals that are Established: Determination:: Goals will be added/modified as deemed necessary and appropriate. Therapy will be discontinued when results of re-evaluation indicate therapy is no longer needed or lack of progress has been documented. - Goal #1-5 Goal #1: Jatin will make a consistent choice between two presented food items by effectively conveying yes and/or no with 75% accuracy in 3/4 consecutive sessions. Goal #2: Jatin will spontaneously make functional requests via augmented sign language, to include up, more, and eat, with 50% accuracy in 3/4 consecutive sessions. Goal #3: Jatin will categorize objects from significantly different classes from a Fo2 with 60% accuracy in 3/4 consecutive sessions. Goal #4: Jatin will follow simple one-step, non-routine commands, including identifying basic nouns, with 60% accuracy in 3/4 consecutive sessions.
== END 2020-09-10 19:00 | disposition home or self-care (01) ==
LOC: SP 09:00
PROVIDERS: PCP Family Medicine; Referring Provider Family Medicine; Visit Provider Family Medicine
DX: F80.2 Mixed receptive-expressive language disorder (principal); G80.9 Cerebral palsy, unspecified; R49.9 Unspecified voice and resonance disorder
CPT/HCPCS: 92507

== ENCOUNTER → 2020-09-17 13:09 | Outpatient (CLI) | payer MEDICARE, MEDICAID, SELFPAY ==
--- NOTE | 2020-09-17 13:17 | SP.MBSS_ITS ---
Modified Barium Swallow - Patient Information Study Date: 09/17/20 Study Time: 13:15 Direct Billable Minutes: 135 Total Minutes procedure & reportin Diagnosis: dysphagia Referring Physician: Wilfredo Marcano Reason for Referral: Patient is a 65 year old male referred for a modified barium swallow (MBS) study to objectively assess the Patients oropharyngeal swallow function under fluoroscopy secondary to the diagnosis of cerebral palsy. Recommendation for MBS per outpatient CUSTOMER ENGAGEMENT REPRESENTATIVE d/t concern for aspiration risk while observed consuming snack during session. It has brock reported that the patient has intermittently presented with coughing and/or increased expiratory wheezing following meals. A prior MBS was completed 05/18/2018 which revealed mild to moderate o ropharyngeal dysphagia (R13.12); transient laryngeal vestibule penetration 1x; no aspiration; higher risk for aspiration/pulmonary complications d/t movement disorder and limited mobility status. Medical History: Infantile cerebral palsy with severe spasticity and associated developmental disabilities / nonverbal status, gluten intolerance, scoliosis deformity of the spine, bilateral hip displacement Current Diet Ordered: regular textures/thin liquids Respiratory Status: Oxygenating on Room Air - Study Findings Consistencies: Thin Liquid, Pudding, Cookie - gluten free - Penetration-Aspiration Scale Score Thin Liquid via teaspoon Result: 1= does not enter airway Thin Liquid via sequential sips from straw Result: 1= does not enter airway Pudding Result: 1= does not enter airway Thin Liquid via single sip from straw Result: 1= does not enter airway Cookie Result: 1= does not enter airway Thin Liquid via single sip from straw Trial 2 Result: 1= does not enter airway - Oral Phase Labial Seal: Escape beyond mid-chin Tongue Control During Bolus Hold: Escape to lateral buccal cavity/floor of mouth Bolus Preparation/Mastication: Disorganized chewing/mashing with solid pieces of bolus unchewed Bolus Transport/Lingual Motion: Slowed tongue motion Oral Residue: Residue collection on oral structures - Pharyngeal Phase Initiation of Pharyngeal Swallow: Bolus head at posterior laryngeal surgace of epiglottis Soft Palate Elevation: No bolus between soft palate and pharyngeal wall Laryngeal Elevation: Comp. Superior move thyroid cart w/comp. apprx arytenoid cart-epig pet Anterior Hyoid Excursion: Partial anterior movement Epiglottic Movement: Partial inversion Pharyngeal Stripping Wave: Present - diminished Pharyngoesophageal Segment Opening: Parital distension and partial duration; parital obstruction of flow - *difficult to observe/score d/t positioning limitations Tongue Base Retraction: Narrow column of contrast between tongue base & post. pharyngeal wall Pharyngeal Residue: Collection of residue within or on pharyngeal structures - Esophageal Phase Esophageal Clearance: Complete clearance - UNABLE TO SCORE, unable to view d/t positioning limitations - Treatment Strategies Effects of treatment strategies attemped:: double swallow = somewhat effective, although difficult to elicit consistently liquid wash = effective to clear oral/pharyngeal residue - Diagnosis/Impression Diagnosis: mild to moderate oropharyngeal dysphagia (R13.12) Impression: Oral phase marked by: * mastication inefficiency (mild to moderate) with prolonged but effective mastication * inconsistent labial seal around straw w/ intermittent anterior bolus leakage * slowed lingual motion for A-P bolus transportation * lack of bolus cohesion noted w/ multiple swallows/piecemeal deglutition * oral residue retention sufficiently cleared w/ liquid wash Pharyngeal phase marked by: * impaired pharyngeal swallow onset timing with suboptimal bolus location upon swallow onset * insufficient base of tongue retraction and diminished pharyngeal stripping wave resulting in suboptimal pharyngeal contraction/pressure for pharyngeal bolus clearance * reduced anterior hyoid excursion resulting in incomplete epiglottic inversion * tongue base retraction and incomplete epiglottic inversion contributed to base of tongue/vallecular residue retention post deglutition * residue retention improved somewhat by double swallow/liquid wash * adequate laryngeal vestibule closure w/ no penetration/aspiration identified under fluoroscopy Study was limited by suboptimal view of pyriform sinuses/PES opening/esophagus d/t patient positioning. Despite lack of aspiration during MBS, this patient remains at an increased risk for aspiration d/t reported propensity for tach yphagia and suboptimal positioning during intake. Swallow function appears essentially unchanged since prior study 12/2017. - Recommendations Diet: Regular Textures, Thin Liquids Comment: Continue current diet as tolerated, assist w/ intake. Supervision: Assist as needed, Fed by trained family - and/or caregivers Recommend Repeat Modified Barium Swallow: No Need for Skilled Speech Therapy Services: Yes - Caregiver education re: dysphagia/aspiration risk Education Completed: 1. Described result of evaluation., 4. Family/caregivers understand evaluation & agree w/ goals & tx plan. Comment: Results and recommendations were discussed w/ the patient, his mother and 2 caregivers from the patient's care home immediately following MBS conclusion. Swallow function appears to be essentially unchanged since prior study in 2017. Education provided re: increased risk for aspiration and likelihood of pulmonary complications d/t movement disorder and mobility limitation. Patient is wheelchair bound and dependent for transfers. Extended time spent transferring patient to and from swallow study chair w/ use of Lisa lift. - Status Active ST Patient: Active - Contact Information [facility] Speech Therapy:: Pari Polk M.A., [facility]-CUSTOMER ENGAGEMENT REPRESENTATIVE Speech-Language Pathologist [email or web address] [phone]
== END ==
PROVIDERS: PCP Family Medicine; Referring Provider Family Medicine; Visit Provider Family Medicine
DX: G80.9 Cerebral palsy, unspecified (principal)
CPT/HCPCS: 74230; 92611

== ENCOUNTER 2020-11-19 09:30 | Outpatient (RCR) | payer MEDICARE, MEDICAID, SELFPAY ==
--- NOTE | 2021-04-08 13:01 | HP.SP.DC ---
ST Discharge Summary - Discharged: Discharge: The patient was evaluated by speech therapy 08/22/2020 with POC initiated to address impairments in expressive communication skills and to implement use of sign to improve functional communication. He has attended 116 sessions and was most recently working towards functional communication via gestures/sign, following commands, and categorization. He demonstrated progress towards goals for sign/gestures, and pt's prison staff was educated at sessions on use of patient's signs and gestures to improve communication in his home environment. He demonstrated progress towards executing familiar simple commands given repetition; however, limited to no progress was observed with categorization goal. The patient was last seen for speech therapy session 11/19/2020. Since, the family rescheduled but cancelled his appointments on 4 occasions. They have not called to reschedule additional visits since 02/11/2021. The patient will be discharged from speech therapy at this time.
== END 2020-11-19 19:00 | disposition home or self-care (01) ==
LOC: SP 09:30
PROVIDERS: PCP Family Medicine; Referring Provider Family Medicine; Visit Provider Family Medicine
DX: G80.9 Cerebral palsy, unspecified (principal); F80.2 Mixed receptive-expressive language disorder
CPT/HCPCS: 92507